=== PATIENT | female | born 1965 | race Caucasian/White ===

== ENCOUNTER 2018-11-12 15:37 | Outpatient (CLI) | payer BC ==
[2018-11-12] MEDS ORDERED: CHOL100015 PO (15:55)
[2018-11-12] MEDS ORDERED: LEVO125T PO (16:10)
[2018-11-12] MEDS ORDERED: Biest SL (16:15)
== END 2018-11-12 23:59 | disposition home or self-care (01) ==
LOC: STAR 15:37
PROVIDERS: ATTEND Surgery
DX: Z02.9 Encounter for administrative examinations, unspecified (principal)

== ENCOUNTER 2018-11-16 08:00 | Day surgery (SDC) | payer BC ==
[2018-11-12 15:55] VITALS: BP 161/83
[~2018-11-16] VITALS: Ht 165.1 cm; Wt 55.5 kg
[~2018-11-16 08:00] MED LIST: Biest SL; CHOL100015 PO; LEVO125T PO
[2018-11-16] MEDS: LACTATED RINGERS 1,000 ML IV SCH ×2 (09:43→09:44)
[2018-11-16] MEDS ORDERED: FENTANYL PF 250 MCG/5ML ONE (10:50)
[2018-11-16] MEDS ORDERED: MIDAZOLAM 1 MG/ML, 2ML ONE (10:50)
[2018-11-16] MEDS ORDERED: ONDANSETRON 2MG/ML, 2ML ONE (11:24)
[2018-11-16] MEDS ORDERED: ROCURONIUM 10MG/ML,5ML ONE (11:24)
[2018-11-16] MEDS ORDERED: PROPOFOL 10 MG/ML, 20ML ONE (11:24)
[2018-11-16] MEDS ORDERED: DEXAMETHASONE 4 MG/ML, 1ML ONE (11:24)
[2018-11-16] MEDS ORDERED: SUCCINYLCHOLINE 20 MG/ML, 10ML ONE (11:24)
[2018-11-16] MEDS ORDERED: METOPROLOL 1 MG/ML, 5ML ONE (12:14)
[2018-11-16 12:29] LABS: IOPTH BASELINE 126 pg/mL
[2018-11-16 12:30] LABS: 10MIN %DROP IOPTH 81 %; 5MIN %DROP IOPTH 75 %
[2018-11-16] MEDS ORDERED: hydrALAzine 20 MG/ML, 1ML IV PRN (12:30)
[2018-11-16] MEDS ORDERED: METOPROLOL 1 MG/ML, 5ML IV PRN (12:30)
[2018-11-16] MEDS ORDERED: MEPERIDINE/PF 25MG/0.5ML IVPush PRN (12:30)
[2018-11-16] MEDS ORDERED: EPHEDRINE 50 MG/ML, 1ML IVPush PRN (12:30)
[2018-11-16] MEDS ORDERED: DIAZEPAM 5 MG/ML, 2ML IVPush PRN (12:30)
[2018-11-16] MEDS ORDERED: MORPHINE SULFATE 4 MG/ML, 1ML IVPush PRN (12:30)
[2018-11-16] MEDS ORDERED: ONDANSETRON ODT 8 MG PO PRN (12:30)
[2018-11-16] MEDS ORDERED: EPHEDRINE 50 MG/ML, 1ML IM PRN (12:30)
[2018-11-16] MEDS ORDERED: PROMETHAZINE 25 MG/ML, 1ML IV PRN (12:30)
[2018-11-16] MEDS ORDERED: MIDAZOLAM 1 MG/ML, 2ML IV PRN (12:30)
[2018-11-16] MEDS ORDERED: OXYcodone 5 MG/5 ML ORAL.SOL UDC PO PRN (12:30)
[2018-11-16] MEDS ORDERED: DIPHENHYDRAMINE 50 MG/ML, 1ML IVPush PRN (12:30)
[2018-11-16] MEDS ORDERED: ONDANSETRON 2MG/ML, 2ML IV PRN (12:30)
[2018-11-16] MEDS ORDERED: OXYcodone 5 MG/5 ML ORAL.SOL UDC ONE (12:54)
[2018-11-16] MEDS ORDERED: FENTANYL PF 100 MCG/2ML ONE (12:54)
[2018-11-16] MEDS: FENTANYL PF 100 MCG/2ML IV PRN ×3 (13:05→13:33)
[2018-11-16] MEDS ORDERED: ACETAMINOPHEN 650 MG/20.3 ML UDC ONE (13:39)
[2018-11-16] MEDS ORDERED: ACETAMINOPHEN 650 MG/20.3 ML UDC PO PRN (14:00)
== END 2018-11-16 15:50 | disposition home or self-care (01) ==
LOC: OR 08:00 → OUT 15:50
PROVIDERS: ATTEND Surgery
DX: E04.1 Nontoxic single thyroid nodule (principal); D35.1 Benign neoplasm of parathyroid gland; E06.5 Other chronic thyroiditis; E21.0 Primary hyperparathyroidism; I10 Essential (primary) hypertension; E03.9 Hypothyroidism, unspecified; Z72.89 Other problems related to lifestyle; Z79.890 Hormone replacement therapy; Z79.899 Other long term (current) drug therapy; Z87.891 Personal history of nicotine dependence; Z80.3 Family history of malignant neoplasm of breast; Z80.1 Family history of malignant neoplasm of trachea, bronchus and lung; Z82.49 Family history of ischemic heart disease and other diseases of the circulatory system
CPT/HCPCS: 36415; 60220; 60500; 83970; 88305; 88307; 88331; C1760; J0330; J1100; J2250; J2405; J2704; J3010; J7120